=== PATIENT | male | born 1995 | race Caucasian/White ===

== ENCOUNTER 2020-11-19 08:16 | Emergency (ER) | payer SELFPAY ==
[2020-11-19] VITALS (7 sets, daily range): BP systolic 126–147; BP diastolic 70–93; PULSE 70–98; RESP 12–14; TEMP 37; O2SAT 95–99
--- NOTE | ~2020-11-19 | CT_ITS ---
EXAMINATION: CT facial bones w con EXAM DATE: 11/19/2020 09:58 INDICATION: Left lower jaw pain and swelling. TECHNIQUE: Spiral CT of the facial bones was acquired in the axial plane following intravenous inject ion of 75 mL Omnipaque 350. Coronal reformatted images were also reviewed. The dose-length product (DLP) for this examination was 320.16 mGy-cm. The exposure was tailored according to patient size, a nd iterative reconstruction (ASIR) was used as additional dose reduction technique. There is no prio r study for comparison. FINDINGS: There is large cavity within the left lower posterior molar pain, probably tooth #17, and a lso periapical lucency of this tooth. Located inferomedial to this, medial to the mandibular body the re is a fluid collection consistent with abscess measuring about 2.2 x 1.8 x 3.0 cm. This is causing some posterior and inferior displacement of the left submandibular gland. There is edema within some deep fat planes including the left parapharyngeal fat, surrounding the lef t hyoid bone with effacement of the left vallecula, mild narrowing of the airway. The epiglottis is n ormal in thickness. There are no displaced acute nasal bone fractures. The mandible, sinuses and orbi ts are intact. The orbits, globes and extraocular muscles are unremarkable. The visualized sinuse s and mastoid air cells are well aerated. IMPRESSION: Probable odontogenic 2 by 3 cm abscess inferomedial to left lower posterior molar cavity and infected root, with edema in the left parapharyngeal fat planes, left vallecular effacement and m ild airway narrowing. Reviewed, dictated and finalized at location A. IMPRESSION: Probable odontogenic 2 by 3 cm abscess inferomedial to left lower p osterior molar cavity and infected root, with edema in the left parapharyngeal fat planes, left vallecular effacement and mild airway narrowing.
--- NOTE | 2020-11-19 09:11 | ED.DENTAL ---
HPI - Dental/Oral General Chief complaint: Dental/Oral Stated complaint: painful jaw, possible infection Time Seen by Provider: 11/19/20 08:59 Source: patient Mode of arrival: ambulatory Limitations: no limitations History of Present Illness HPI Narrative: This is a 25 year old male who presents for evaluation of left jaw pain and swelling. He developed left jaw pain on Sunday. He states this pain has continue to worsen. He has severe pain with moving in mouth. He states today he can not swallow because he feels like something is going to pop. HE has been taking ibuprofen and tylenol for his pain and his last dose was yesterday. Related Data Allergies Allergy/AdvReac Type Severity Reaction Status Date / Time No Known Allergies Allergy Mild Verified 10/03/11 18:54 Review of Systems Review of Systems: All systems reviewed & are unremarkable except as noted in HPI and below PMFSH Past Medical History Medical History (Updated 11/19/20 @ 18:08 by Vicki Guzmán MD) Hypertension Surgical History Surgical History (Updated 11/19/20 @ 09:13 by Vicki Guzmán MD) No pertinent past surgical history Social History Social History (Updated 11/19/20 @ 09:14 by Vicki Guzmán MD) Smoking status: Former smoker Exam Const: General: alert Orientation/consciousness: patient oriented x3 Other: patient crying HENMT: Head: normocephalic and atraumatic Ears: TM's normal bilaterally Mouth: Yes moist mucous membranes, Yes trismus and Yes other (left submandibular swelling and tenderness) Teeth and gingiva: caries Throat: posterior oropharynx normal and uvula midline Other: left submandibular swelling , nodule tenderness, tongue floor soft Eyes: Pupils: Equal, round and reactive pupils present EOM: EOMs intact bilaterally Resp: Effort & Inspection: normal respiratory effort and no retractions Auscultation: clear to auscultation bilaterally Cardio: Rate: regular rate Rhythm: regular rhythm Heart sounds: no murmurs Skin: General skin exam: normal color Rashes: no rashes Neuro: General: patient oriented x3, moves all extremities and CN's II-XI intact bilaterally Course Reevaluation(s) Reevaluation #1: PAtient continue to remain stable to open airway. He is in no acute distress. I discussed with patient and family that he has an abscess. 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 Date: 11/19/20 Time: 11:00 Reevaluation #2: Patient has a bed at [facility]. He states he wants to wait to get to [facility]. He declines aspiration by ENT. Date: 11/19/20 Time: 18:06 Consultations Consultation #1: I called [facility] access who states ENT can not take care of this and recommend trying another facility. Juan states that are at capacity. I spoke with Caroline Javier with hospitalist at [facility] and she has accepted patient. She will place patient on wait list. Date: 11/19/20 Time: 12:07 Consultation #2: I spoke with Dr. Xiao, ENT who states he is will to come see patient to see if can aspirate. Date: 11/19/20 Time: 13:45 Vital Signs Vital signs: Vital Signs Temperature 98.6 F 11/19/20 08:30 Pulse Rate 98 11/19/20 08:30 Respiratory Rate 14 11/19/20 08:30 Blood Pressure 147/87 H 11/19/20 08:30 Pulse Oximetry 99 11/19/20 08:30 Temperature 98.6 F 11/19/20 08:30 Pulse Rate 78 11/19/20 17:24 Respiratory Rate 12 11/19/20 17:24 Blood Pressure 132/83 11/19/20 17:24 Pulse Oximetry 99 11/19/20 17:24 MDM - Dental/Oral Lab Data Attestation: I reviewed the patient's lab results. Result diagrams: 11/19/20 09:20 11/19/20 09:20 Labs: Lab Results 11/19/20 11/19/20 Range/Units 09:20 09:20 WBC 14.6 H (4.5-10.0) K/mm3 RBC 4.84 (4.6-6.20) M/mm3 Hgb 14.7 (14.0-18.0) g/dL Hct 42.3 (42.0-52.0) % MCV 87.4 (80-100) fl MCH 30.4 (26-34) pg MCHC 34.8 (32-36) g/dl RDW 12.3 (11.5-1
[2020-11-19] MEDS: KETOROLAC 30 MG/ML VIAL (*BKC) IV PUSH (09:22)
[2020-11-19 09:27] LABS: Basophils Percent Auto 0.2 % (0.2-1.2); Eosinophils Percent Auto 0.1 % (0-4.4); Hematocrit 42.3 % (42.0-52.0); Hemoglobin 14.7 g/dL (14.0-18.0); Immature Granulocyte Absolute 0.05 K/mm3 (0.00-0.031); Immature Granulocyte Percent A 0.3 % (0-0.5); Lymphocytes Absolute Auto 1.25 K/mm3 (0.9-3.2); Lymphocytes Percent Auto 8.6 % (18.3-44.2); Mean Corpuscular HGB Conc 34.8 g/dl (32-36); Mean Corpuscular Hemoglobin 30.4 pg (26-34); Mean Corpuscular Volume 87.4 fl (80-100); Mean Platelet Volume 8.9 fl (7.4-10.4); Monocytes Absolute Auto 1.2 K/mm3 (0.1-0.6); Monocytes Percent Auto 8.2 % (2.6-8.5); Neutrophils Percent Auto 82.6 % (45.5-73.1); Platelet Count Result 298 k/mm3 (150-375); Red Blood Count 4.84 M/mm3 (4.6-6.20); Red Cell Distribution Width 12.3 % (11.5-14.5); White Blood Count 14.6 K/mm3 (4.5-10.0)
[2020-11-19] MEDS: CLINDAMYCIN 900 MG/D5W 50 ML 900 MG/50 ML PIGGYBACK 50 MG IVPB (09:31)
[2020-11-19 09:37] LABS: Alanine Aminotransferase 18 U/L (4-50); Albumin Level 4.4 g/dL (3.5-5.1); Alkaline Phosphatase 75 U/L (38-126); Anion Gap 8 mmol/L (8-16); Aspartate Amino Transferase 26 U/L (17-59); Bilirubin,Total 0.4 mg/dL (0.2-1.3); Blood Urea Nitrogen 12 mg/dL (9-20); Calcium 8.8 mg/dL (8.4-10.2); Carbon Dioxide 28 mmol/L (22-30); Chloride 103 mmol/L (98-107); Estimated CRCL calculation 144 ml/min; Estimated Glomerular Filt Rate > 60; Glucose 103 mg/dL (75-110); Potassium 4.3 mmol/L (3.4-5.0); Sodium 139 mmol/L (137-145)
[2020-11-19] MEDS: ONDANSETRON INJ 4 MG/2 ML VIAL IV PUSH ×2 (10:51→15:04)
[2020-11-19] MEDS: HYDROmorphone HCL INJ (*CRX) 1 MG/ML SYR 0.5 MG IV PUSH (10:51)
[2020-11-19] MEDS: LACTATED RINGERS 1,000 ML 999 ML IV CONT (14:28)
[2020-11-19] MEDS: FAMOTIDINE 20 MG/2 ML VIAL IV PUSH (15:04)
--- NOTE | 2020-11-19 16:05 | PC.NURSE ---
pt has bed #[id number] at [facility] on [facility] Report is to be called to [phone] Fraire
--- NOTE | 2020-11-19 17:14 | PC.NURSE ---
[facility] accepted transfer to [facility] on [address] ETA 1830 Trip # [id number] Mariano Walker Gillespie all declined transfer
== END 2020-11-19 18:15 | disposition short-term general hospital (02) ==
PROVIDERS: Emergency Provider General Practice
DX: K04.7 Periapical abscess without sinus (principal); Z87.891 Personal history of nicotine dependence; I10 Essential (primary) hypertension
CPT/HCPCS: 36415; 70487; 80053; 85025; 96361; 96365; 96367; 96375; 96376; 99285; J0131; J1100; J1170; J1885; J1956; J2405; J7120; Q9967

== ENCOUNTER 2024-03-02 10:59 | Emergency (ER) | payer OTHER, SELFPAY ==
[2024-03-02 11:10] VITALS: BP 130/87; PULSE 95; RESP 14; TEMP 37.2; O2SAT 100
--- NOTE | 2024-03-02 11:32 | ED.SKABFB ---
HPI - Skin/Abscess/Foreign Bdy General Chief complaint: Skin/Abscess/Foreign Body Stated complaint: skin rash poison aura Time Seen by Provider: 03/02/24 11:27 Source: patient and RN notes reviewed Mode of arrival: ambulatory Limitations: no limitations History of Present Illness HPI narrative: Patient presents today complaining of poison aura. He was exposed 3 days ago and rash started 2 days ago. Yesterday he woke up with the rash around his eyes and this morning his right eye was swollen shut. He has been using some calamine lotion and cold compresses without much relief. He also has been taking some Benadryl occasionally. Related Data Allergies Allergy/AdvReac Type Severity Reaction Status Date / Time No Known Allergies Allergy Mild Verified 03/02/24 11:06 Review of Systems Review of Systems: CONSTITUTIONAL: Denies body aches, fever, chills, or sweats. EYES: Denies visual changes, redness, or discharge. ENT: Denies rhinorrhea, congestion, sore throat, or otalgia. CARDIOVASCULAR: Denies chest pain, palpitations, or edema. RESPIRATORY: Denies cough or dyspnea. GASTROINTESTINAL: Denies abdominal pain, nausea, vomiting, or diarrhea. GENITOURINARY: Denies dysuria or hematuria. SKIN: + pruritic rash MUSCULOSKELETAL: Denies back pain, joint pain, or myalgia. NEUROLOGIC: Denies headache, numbness, tingling, or weakness. PSYCH: Denies depression or anxiety. PMFSH Past Medical History Medical History Hypertension Surgical History Surgical History No pertinent past surgical history Social History Social History Smoking status: Former smoker Comments At time of signature, I have reviewed and agree with nursing past medical, surgical, social and family history unless otherwise noted. Please see nursing chart for further information. There is no relevant family history pertinent to the presenting complaint Exam Narrative: GENERAL: Well-appearing, well-nourished, and in no acute distress. HEAD: Normocephalic, atraumatic. EYES: EOMI. No redness or drainage. Conjunctivae normal. ENT: Mucous membranes pink and moist. NECK: Normal AROM. CHEST: No respiratory distress. EXTREMITIES: Normal range of motion. No edema. SKIN: Warm, dry. Capillary refill normal. Normal skin turgor. Erythematous maculopapular rash to the chest, abdomen, bilateral forearms and antecubital fossa, right neck forehead, and bilateral eyelids and eye areas. There is some a very mild swelling around the eyes. NEURO: No focal deficits. Alert and oriented x3. Gait steady. PSYCH: Normal affect. No signs of depression or anxiety. Course Course Level of Care: Express Care Visit Vital Signs Vital signs: Vital Signs Temperature 98.9 F 03/02/24 11:10 Pulse Rate 95 03/02/24 11:10 Respiratory Rate 14 03/02/24 11:10 Blood Pressure 130/87 03/02/24 11:10 Pulse Oximetry 100 03/02/24 11:10 Temperature 98.9 F 03/02/24 11:10 Pulse Rate 95 03/02/24 11:10 Respiratory Rate 14 03/02/24 11:10 Blood Pressure 130/87 03/02/24 11:10 Pulse Oximetry 100 03/02/24 11:10 Reviewed MDM - Skin/Abscess/Foreign Bdy MDM Narrative Medical decision making narrative: Patient will be treated for or poison aura dermatitis with prednisone. He will be given his 1st dose via IM injection here today due to significant rash on the face, and start oral medication tomorrow. Anticipatory guidance given. Differential Diagnosis Differential diagnosis: Likely abscess of skin or subcutaneous tissue, cellulitis, eczema, impetigo and contact dermatitis Critical Care Time Critical Care Time Critical Care Time: No Discharge Plan Discharge Clinical Impression: Poison aura dermatitis Patient Disposition: Home, Self-Care Condition: Stable Instr
[2024-03-02] MEDS: dexAMETHasone SOD PHOS INJ 10 MG/ML 1 ML VIAL 12 MG IM (11:37)
== END 2024-03-02 11:51 | disposition home or self-care (01) ==
PROVIDERS: Emergency Provider Nurse Practitioner; PCP Family Medicine Adolescent Medicine
DX: L23.7 Allergic contact dermatitis due to plants, except food (principal); I10 Essential (primary) hypertension
CPT/HCPCS: 96372; 99213; G0463; J1100

== ENCOUNTER 2024-03-19 08:19 | Emergency (ER) | payer OTHER, SELFPAY ==
--- NOTE | 2024-03-19 08:21 | ED.URI ---
HPI - URI/Sore Throat General Chief Complaint: Upper Respiratory Infection Stated Complaint: Sinus Time Seen by Provider: 03/19/24 08:21 Source: patient Mode of arrival: ambulatory Limitations: no limitations History of Present Illness HPI Narrative: Thomas is a 29-year-old male patient presenting to the clinic today with complaints of sinus congestion, cough, nausea, vomiting, headaches, sweats, chills, and body aches for the past 4 days. He reports he thinks he may have Covid. Appears anxious but denies chest pain or shortness of breath. States he overall does not feel well. Denies sore throat. Denies any known fever. Has been taking tylenol/motrin for his symptoms. Related Data Allergies Allergy/AdvReac Type Severity Reaction Status Date / Time No Known Allergies Allergy Mild Verified 03/19/24 08:32 Review of Systems Review of Systems: Pertinent positives per HPI. Patient denies any fever, chills, rash, headache, visual changes, dizziness, cough, runny nose, sore throat, shortness of breath, chest pain, palpitations, nausea, vomiting, diarrhea, constipation, abdominal pain, or any urinary issues. PMFSH Past Medical History Medical History Hypertension Surgical History Surgical History No pertinent past surgical history Social History Social History Smoking status: Former smoker Comments At the time of my signature, I reviewed and agree with the nursing past medical, surgical, social, and family history. There is no relevant family history pertinent to the patient complaint. Exam Narrative: General: Well-developed, well nourished, in no apparent distress Head: Normocephalic, atraumatic Eyes: Pupils equally round and reactive to light bilaterally, EOM intact, sclera and conjunctive clear, no discharge, lids normal Ears: TMs intact and congested, ear canals clear, no drainage, grossly hearing normal. Nose: Nares patent, clear nasal discharge, no inflammation, no sinus tenderness. Mouth: Oropharynx without lesions or masses, good dentition, MMM. Neck: Supple, trachea midline, no enlargement of anterior or posterior cervical nodes, no thyroid masses or goiter palpable. Cardio: Regular rate and rhythm, s1 and s2 normal, no murmur appreciated. Resp: Clear to auscultation bilaterally anteriorly and posteriorly, no rhonchi, rales, wheezing or rubs Course Course Emergency Course: Portions of this record may have been created with voice recognition software. Level of Care: Express Care Visit Vital Signs Vital signs: Vital signs reviewed MDM - URI/Sore Throat MDM Narrative Medical decision making narrative: At the time of visit patient is resting comfortably on the exam table. Patient appears to be nontoxic. Labs: COVID and influenza test were performed and were negative in the clinic today Plan: I suspect patient has URI/gastritis/ viral syndrome. Prescription for Zofran was sent to the pharmacy for Supportive measures were discussed with the patient and they voiced understanding discharge instructions and agrees to treatment plan. Return precautions reviewed Differential Diagnosis Differential diagnosis: Likely upper respiratory infection, otitis media, sinusitis, viral infection, bronchitis, influenza, pharyngitis and other (COVID) Discharge Plan Discharge Clinical Impression: Viral infection, Acute nausea with nonbilious vomiting Upper respiratory infection Qualifiers: URI type: unspecified URI Qualified Code(s): J06.9 - Acute upper respiratory infection, unspecified Patient Disposition: Home, Self-Care Condition: Stable Instructions: Antibiotic Form, Upper Respiratory Infection (ED), Acute Nausea and Vomiting (ED), Viral Syndrome (ED) Additional Instructions: COVID and influenza testing was neg
[2024-03-19 08:26] VITALS: BP 149/82; PULSE 82; RESP 16; TEMP 37.1; O2SAT 100
[2024-03-19 08:48] LABS: EDINFLUASCREEN Negative; EDINFLUBSCREEN Negative
== END 2024-03-19 08:56 | disposition home or self-care (01) ==
PROVIDERS: Emergency Provider Nurse Practitioner Family; PCP Family Medicine Adolescent Medicine
DX: B34.9 Viral infection, unspecified (principal); R11.2 Nausea with vomiting, unspecified; J06.9 Acute upper respiratory infection, unspecified; Z20.822 Contact with and (suspected) exposure to COVID-19; Z87.891 Personal history of nicotine dependence; I10 Essential (primary) hypertension
CPT/HCPCS: 87426; 87804; 99213; G0463

== ENCOUNTER 2024-12-25 13:29 | Emergency (ER) | payer OTHER, SELFPAY ==
--- NOTE | ~2024-12-25 | XR_ITS ---
XR finger 2nd RT min 2V Ordering provider: Annel Torres APRN History: . Distal finger injury . Comparison: None FINDINGS: BONES: No acute fracture or dislocation. Sclerotic changes seen in the anterior medial cortex of the middle phalanx of the right second finger. Clinical correlation and follow-up advised. JOINT SPACES: Normal. SOFT TISSUES: Normal. IMPRESSION: No acute osseous abnormality. Sclerotic area in the middle phalanx of the right second finger. Reviewed, dictated and finalized at location A.
[2024-12-25 13:35] VITALS: BP 131/72; PULSE 71; RESP 14; TEMP 36.9; O2SAT 100
--- NOTE | 2024-12-25 13:35 | ED.UPPEXIN ---
HPI - Extremity Injury (Upper) General Chief Complaint: Wound/Laceration Stated Complaint: RT Hand Finger Cut Time Seen by Provider: 12/25/24 13:35 Source: patient, RN notes reviewed and old records reviewed Mode of arrival: ambulatory Limitations: no limitations History of Present Illness HPI narrative: 29-year-old male presents to the [facility] with an injury to the 2nd finger right hand. Distal palmar aspect. Patient reports that he smashed between 2 metal pieces. Skin is avulsed to the pad of the distal finger. Tenderness to the distal phalanx. No subungual hematoma. Unknown last Tdap Bleedings controlled Related Data Allergies Allergy/AdvReac Type Severity Reaction Status Date / Time citalopram (From Celexa) Allergy Mild Palpitation Verified 12/25/24 13:43 s duloxetine (From Cymbalta) Allergy Mild Palpitation Verified 12/25/24 13:43 s Review of Systems Review of Systems: All systems reviewed & are unremarkable except as noted in HPI and below Constitutional: Constitutional: Reports no additional constitutional complaints ENT: Reports system reviewed and no additional complaints, except as documented Cardiovascular: Cardiovascular: Reports no additional cardiovascular complaints, Denies chest pain and Denies dyspnea Respiratory: Respiratory: Reports no additional respiratory complaints, Denies chest congestion, Denies cough and Denies dyspnea Musculoskeletal: Musculoskeletal: Reports as per HPI Integumentary/Breasts: Skin/Breast: Reports as per HPI PMFSH Past Medical History Medical History Hypertension Surgical History Surgical History No pertinent past surgical history Social History Social History Smoking status: Former smoker Comments At the time of my signature, I reviewed and agree with the nursing past medical, surgical, social, and family history. There is no relevant family history pertinent to the patient complaint. Exam Const: General: cooperative, healthy appearing, comfortable, no acute distress, well developed, alert and well nourished Nutritional Appearance: well nourished Orientation/consciousness: patient oriented x3 Limitations: no limitations HENMT: Head: normal to inspection Eyes: General: appearance normal, both eyes and all related structures Alignment and Position: alignment normal Neck: Neck: normal visual inspection, full ROM, no lymphadenopathy and no meningeal signs Chest: Chest palpation & inspection: normal inspection of the chest Resp: Effort & Inspection: normal respiratory effort and able to speak in complete sentences Cardio: Rate: regular rate Skin: General skin exam: normal color and no rashes or lesions noted Other: 1.2 x 1 cm avulsion of skin distal right 2nd finger Neuro: General: patient oriented x3, gait normal, moves all extremities and no meningeal signs Cognition (Neuro): normal cognition Speech: normal speech Gait exam (Neuro): Normal gait present Extrem: General: normal to inspection, full ROM, capillary refill normal and normal gait Right upper extremity: Extremity exam: right hand normal capillary refill, neuromotor exam normal wrist extension normal, thumb opposition normal, thumb IP flexion normal, thumb ADduction normal and fingers 2-5 ABduction normal, vascular exam radial pulse present and normal capillary refill, normal ROM of fingers and other (Avulsion of skin 2nd finger distal aspect) Psych: Appearance: grossly normal and well kempt Mental Status: mental status grossly normal Speech and movement: Normal speech and movement present and Clear speech present Affect: normal affect Attitude: cooperative Course Course Level of Care: Express Care Visit Vital Signs Vital signs: Vital Signs Temperature 98.4 F 12/25/24 13:35 Pulse Rate 71 12/25/24 13:35 Respiratory Rate 14 12/25/24 13:35 Blood Pressure 131/72 12/25/24 13:35 Pulse Oximetry 100 12/25/24 13:35 Oxygen Delivery Room Air 12/25/24 13:35 Temperature 98.4 F 12/25/24 13:35 Pulse Rate 71 12/25/24 13:35 Respiratory Rate 14 12/25/24 13:35 Blood Pressure 131/72 12/25/24 13:35 Pulse Oximetry 100 12/25/24 13:35 Oxygen Delivery Room Air 12/25/24 13:35 Reviewed MDM - Extremity Injury (Upper) MDM Narrative Medical decision making narrative: Patient sitting in exam room. Nontoxic, vitals stable, x-ray no acute findings, updated tetanus, area cleaned, so to with wound cleanser and saline. Avulsion of skin cover covered with antibiotics. Patient is appropriate for outpatient treatment with close follow-up Discharge instructions reviewed with patient, as well as provided in writing per nursing staff. The instructions also include specific and strict return/GO TO THE ER as well as f/u information. All questions have been answered, and the patient deny any further questions with discharge and discharge plan. Some parts of this dictation were generated by voice recognition software and may contain typographical and/or grammatical inaccuracies. Differential Diagnosis Differential diagnosis: Likely other (Fracture, avulsion, laceration) Critical Care Time Critical Care Time Critical Care Time: No Discharge Plan Discharge Clinical Impression: Vaccine for [id number], combined Avulsion of skin of finger Qualifiers: Encounter type: initial encounter Qualified Code(s): S61.209A - Unspecified open wound of unspecified finger without damage to nail, initial encounter Patient Disposition: Home Condition: Stable Instructions: Antibiotic Form, Skin Avulsion (ED) Additional Instructions: It is extremely important that you keep that wound clean and dry. Take antibiotic as prescribed Follow-up with primary care provider or Dr. Haney to assure you are healing properly. On x-ray it was noted that there is a thickening of a bone. Is recommended you follow-up with your primary care provider. Patient Language: Maldivian Prescriptions: New amoxicillin-pot clavulanate 875-125 mg tablet 1 tablet PO Q12H Qty: 20 0RF Follow-up/Referrals: Anup Haney MD [Physician] - 1 Week (Skin avulsion 2nd finger right hand) Brent Dennis MD [Primary Care Provider] - 1 Week Stand Alone Forms: Work/School Release IP Time of Disposition: 14:28
[2024-12-25] MEDS: TETANUS,DIPHTHERIA,AC PERTUSSIS ADULT (0.5 ML) BOOSTRIX IM (13:59)
== END 2024-12-25 14:40 | disposition home or self-care (01) ==
PROVIDERS: Emergency Provider Nurse Practitioner; PCP Family Medicine Adolescent Medicine
DX: S61.200A Unspecified open wound of right index finger without damage to nail, initial encounter (principal); W22.8XXA Striking against or struck by other objects, initial encounter; Z23 Encounter for immunization; I10 Essential (primary) hypertension; Z87.891 Personal history of nicotine dependence
CPT/HCPCS: 73140; 90471; 90715; 99213; G0463